=== PATIENT | female | born 1995 | race Caucasian/White ===

== ENCOUNTER 2018-04-27 20:51 | Emergency (ER) | payer OTHER ==
[~2018-04-27 20:51] MED LIST: ESCI20TA38 PO; HYDR25CA83 PO
[2018-04-27] MEDS ORDERED: AMIT-104 (21:37)
[2018-04-27] MEDS ORDERED: NORG1TAB94 PO (21:37)
[2018-04-27] MEDS ORDERED: FLUO40CA67 (21:37)
--- NOTE | 2018-04-27 21:53 | ER Report ---
History and Physical Time Seen By MD: 21:53 Hx. of Stated Complaint: PT REPORTS HEADACHE SINCE 0800 HPI/ROS CHIEF COMPLAINT: Headache HISTORY OF PRESENT ILLNESS: This is a 22-year-old female. She has a severe headache, similar to past migraines but more severe. Took [id number] medicines without relief. Having pain that started in the back of the head and wrapping up and around on the right side. Having some photophobia, no other neurologic deficits. Has never had imaging. This headache is worse than any she has had before. No fevers or chills. No recent illnesses. Allergies: Coded Allergies: No Known Drug Allergies (Unverified , 04/27/18) Home Meds Active Scripts Ketorolac Tromethamine (KETOROLAC TROMETHAMINE) 10 Mg Tab, 10 MG PO Q6H PRN for PAIN, #12 TAB 0 Refills Prov:DYLAN SILVEIRA MD 04/28/18 Promethazine Hcl (PROMETHAZINE HCL) 25 Mg Tablet, 25 MG PO Q8H PRN for HEADACHE, #20 TAB 0 Refills Prov:DYLAN SILVEIRA MD 04/28/18 Reported Medications Fluoxetine Hcl (FLUOXETINE HCL) 40 Mg Capsule, QDAY 04/27/18 Amitriptyline Hcl (AMITRIPTYLINE HCL) 10 Mg Tablet, PRN 04/27/18 Norgestimate-Ethinyl Estradiol (ORTHO TRI-CYCLEN) 1 Each Tablet, 1 EACH PO QDAY 04/27/18 Hydroxyzine Pamoate (VISTARIL) 25 Mg Capsule, 25 MG PO TID PRN for ANXIETY, KAMALJIT DONOHUE 12/03/15 Discontinued Reported Medications Escitalopram Oxalate (LEXAPRO) 20 Mg Tablet, 5 MG PO QDAY, TAB 12/03/15 Reviewed Nurses Notes: Yes Hx Smoking: No Hx Substance Use Disorder: No Hx Alcohol Use: No Constitutional Vital Sign - Last 24 Hours 04/27/18 04/27/18 04/27/18 04/27/18 21:00 21:15 21:37 21:45 Temp 97.9 Pulse 77 ??? 85 Resp 16 B/P (MAP) 127/104 127/104 (112) Pulse Ox 93 93 O2 Delivery Room Air 04/27/18 04/27/18 04/27/18 04/27/18 22:00 22:15 22:20 22:30 Pulse 82 77 86 B/P (MAP) 135/82 (99) 114/92 (99) Pulse Ox 91 95 94 04/27/18 04/27/18 04/27/18 04/27/18 22:50 23:00 23:20 23:30 Pulse 79 85 B/P (MAP) 120/80 (93) 116/75 (89) Pulse Ox 96 95 04/27/18 04/27/18 04/28/18 04/28/18 23:35 23:49 00:00 00:05 Pulse ??? 80 B/P (MAP) 131/77 (95) 120/78 (92) Pulse Ox 94 04/28/18 04/28/18 00:35 00:45 Pulse 81 B/P (MAP) 117/95 (102) Pulse Ox 93 Intake and Output 04/27/18 04/27/18 04/28/18 15:00 23:00 07:00 Intake Total 1000 ml Balance 1000 ml Physical Exam General Appearance: The patient is alert. Acute distress due to pain. Non- toxic in appearance. Eyes: Pupils are equal, round. Reactive to light. No pallor, injection or icterus. Extraocular movements are intact. ENT: Mucous membranes are moist. Normal oral mucosa. Posterior oropharynx is normal. Neck: Supple and non tender. Respiratory: Lungs are clear to auscultation. Cardiovascular: Regular rate and rhythm. No murmurs, gallops or rubs. Neurological: Alert and oriented x3. Cranial nerves II through XII show no acute deficits on my exam. No focal neurologic deficits in the extremities. Skin: Warm and dry. DIFFERENTIAL DIAGNOSIS: After history and physical exam, differential diagnosis was considered for migraine headache, but more severe than usual, will give medications, but also check for other causes of headaches such as masses or bleeding. Medical Decision Making Data Points Result Diagram: 04/27/18215604/27/182156 Laboratory Hematology Test 04/27/18 21:57 04/27/18 22:50 04/27/18 23:38 Red Blood Count 5.38 M/uL (4.17-5.56) Mean Corpuscular Volume 81.6 fL (80.0-96.0) Mean Corpuscular Hemoglobin 27.3 pg (26.0-33.0) Mean Corpuscular Hemoglobin Concent 33.5 g/dL (32.0-36.0) Red Cell Distribution Width 15.5 % (11.5-14.5) Mean Platelet Volume 8.1 fL (7.2-11.1) Neutrophils (%) (Auto) 83.6 % (39.4-72.5) Lymphocytes (%) (Auto) 12.0 % (17.6-49.6) Monocytes (%) (Auto) 3.6 % (4.1-12.4) Eosinophils (%) (Auto) 0.4 % (0.4-6.7) Basophils (%) (Auto) 0.4 % (0.3-1.4) Nucleated RBC Relative Count (auto) 0.0 /100WBC Neutrophils # (Auto) 12.5 K/uL (2.0-7.4) Lymphocytes # (Auto) 1.8 K/uL (1.3-3.6) Monocytes # (Auto) 0.5 K/uL (0.3-1.0) Eosinophils # (Auto) 0.1 K/uL (0.0-0.5) Basophils # (Auto) 0.1 K/uL (0.0-0.1) Nucleated RBC Absolute Count (auto) 0.01 K/uL Sodium Level 138 mmol/L (137-145) Potassium Level 4.0 mmol/L (3.5-5.0) Chloride Level 104 mmol/L (98-107) Carbon Dioxide Level 23 mmol/L (22-31) Blood Urea Nitrogen 9 mg/dl (7-18) Creatinine 0.70 mg/dl (0.52-1.04) Glomerular Filtration Rate Calc > 60.0 Random Glucose 147 mg/dl (75-110) Calcium Level 9.9 mg/dl (8.4-10.2) Total Bilirubin 0.3 mg/dl (0.2-1.3) Aspartate Amino Transf (AST/SGOT) 30 U/L (0-35) Alanine Aminotransferase (ALT/SGPT) 27 U/L (0-56) Alkaline Phosphatase 80 U/L (0-126) Total Protein 7.5 g/dl (6.3-8.2) Albumin 4.4 g/dl (3.5-5.0) Human Chorionic Gonadotropin, Qual Negative (NEGATIVE) Urine Color Straw Urine Clarity Clear Urine pH 6.0 pH (4.8-9.5) Urine Specific Korbel 1.004 Urine Protein Negative mg/dL (NEGATIVE) Urine Glucose (UA) Negative mg/dL (NEGATIVE) Urine Ketones Negative mg/dL (NEGATIVE) Urine Blood Small (NEGATIVE) Urine Nitrite Negative (NEGATIVE) Urine Bilirubin Negative (NEGATIVE) Urine Urobilinogen Negative mg/dL (0.2-1.9) Urine Leukocyte Esterase Trace (NEGATIVE) Urine RBC 1 /HPF (0-2/HPF) Urine WBC 3 /HPF (0-5/HPF) Urine Squamous Epithelial Cells Many /LPF (</=FEW) Urine Bacteria Few /HPF (NONE-FEW) Urine Mucus None /HPF (NONE-FEW) Chemistry Test 04/27/18 21:57 04/27/18 22:50 04/27/18 23:38 White Blood Count 14.9 k/uL (4.5-11.0) Red Blood Count 5.38 M/uL (4.17-5.56) Hemoglobin 14.7 g/dL (12.0-16.0) Hematocrit 43.9 % (34.0-47.0) Mean Corpuscular Volume 81.6 fL (80.0-96.0) Mean Corpuscular Hemoglobin 27.3 pg (26.0-33.0) Mean Corpuscular Hemoglobin Concent 33.5 g/dL (32.0-36.0) Red Cell Distribution Width 15.5 % (11.5-14.5) Platelet Count 312 K/uL (150-450) Mean Platelet Volume 8.1 fL (7.2-11.1) Neutrophils (%) (Auto) 83.6 % (39.4-72.5) Lymphocytes (%) (Auto) 12.0 % (17.6-49.6) Monocytes (%) (Auto) 3.6 % (4.1-12.4) Eosinophils (%) (Auto) 0.4 % (0.4-6.7) Basophils (%) (Auto) 0.4 % (0.3-1.4) Nucleated RBC Relative Count (auto) 0.0 /100WBC Neutrophils # (Auto) 12.5 K/uL (2.0-7.4) Lymphocytes # (Auto) 1.8 K/uL (1.3-3.6) Monocytes # (Auto) 0.5 K/uL (0.3-1.0) Eosinophils # (Auto) 0.1 K/uL (0.0-0.5) Basophils # (Auto) 0.1 K/uL (0.0-0.1) Nucleated RBC Absolute Count (auto) 0.01 K/uL Glomerular Filtration Rate Calc > 60.0 Calcium Level 9.9 mg/dl (8.4-10.2) Total Bilirubin 0.3 mg/dl (0.2-1.3) Aspartate Amino Transf (AST/SGOT) 30 U/L (0-35) Alanine Aminotransferase (ALT/SGPT) 27 U/L (0-56) Alkaline Phosphatase 80 U/L (0-126) Total Protein 7.5 g/dl (6.3-8.2) Albumin 4.4 g/dl (3.5-5.0) Human Chorionic Gonadotropin, Qual Negative (NEGATIVE) Urine Color Straw Urine Clarity Clear Urine pH 6.0 pH (4.8-9.5) Urine Specific Korbel 1.004 Urine Protein Negative mg/dL (NEGATIVE) Urine Glucose (UA) Negative mg/dL (NEGATIVE) Urine Ketones Negative mg/dL (NEGATIVE) Urine Blood Small (NEGATIVE) Urine Nitrite Negative (NEGATIVE) Urine Bilirubin Negative (NEGATIVE) Urine Urobilinogen Negative mg/dL (0.2-1.9) Urine Leukocyte Esterase Trace (NEGATIVE) Urine RBC 1 /HPF (0-2/HPF) Urine WBC 3 /HPF (0-5/HPF) Urine Squamous Epithelial Cells Many /LPF (</=FEW) Urine Bacteria Few /HPF (NONE-FEW) Urine Mucus None /HPF (NONE-FEW) Urinalysis Test 04/27/18 23:38 Urine Color Straw Urine Clarity Clear Urine pH 6.0 pH (4.8-9.5) Urine Specific Korbel 1.004 Urine Protein Negative mg/dL (NEGATIVE) Urine Glucose (UA) Negative mg/dL (NEGATIVE) Urine Ketones Negative mg/dL (NEGATIVE) Urine Blood Small (NEGATIVE) Urine Nitrite Negative (NEGATIVE) Urine Bilirubin Negative (NEGATIVE) Urine Urobilinogen Negative mg/dL (0.2-1.9) Urine Leukocyte Esterase Trace (NEGATIVE) Urine RBC 1 /HPF (0-2/HPF) Urine WBC 3 /HPF (0-5/HPF) Urine Squamous Epithelial Cells Many /LPF (</=FEW) Urine Bacteria Few /HPF (NONE-FEW) Urine Mucus None /HPF (NONE-FEW) EKG/Imaging Imaging CT Head without contrast Indication: Headache. Comparison: None available. Technique: Axial CT images were obtained through the brain from the skull base to the vertex without administration of IV contrast. One of the following dose optimization techniques was utilized in the performance of this exam: Automated exposure control; adjustment of the mA and/or kV according to the patient's size; or use of an iterative reconstruction technique. Specific details can be referenced in the facility's radiology CT exam operational policy. Findings: No evidence of mass, mass effect, or midline shift. No acute intracranial hemorrhage or acute territorial infarction. Skull is normal. Globes and orbits are normal. The visualized paranasal sinuses and mastoid air spaces are clear. IMPRESSION: Normal. Report Dictated By: Pawan Covarrubias MD at 04/27/2018 11:53 PM ED Course/Re-evaluation Clinical Indication for ER IV: Hydration, IV Access ED Course Patient with much improvement with medicines: 1000cc NS, Toradol 15mg, Phenergan 12.5mg IV, and Benadryl 25mg IV. CT scan negative. Discussed with patient. Home with oral medications: Toradol and Phenergan. Decision to Disposition Date: Apr 28, 2018 Decision to Disposition Time: 00:32 Depart Departure Latest Vital Signs Vital Signs Date Time Temp Pulse Resp B/P (MAP) Pulse Ox O2 Delivery O2 Flow Rate FiO2 04/28/18 00:45 117/95 (102) 04/28/18 00:35 81 93 04/27/18 21:00 97.9 16 Room Air Impression: Primary Impression: Migraine headache Condition: Improved Disposition: HOME OR SELF-CARE New Scripts Ketorolac Tromethamine (KETOROLAC TROMETHAMINE) 10 Mg Tab 10 MG PO Q6H PRN for PAIN, #12 TAB 0 Refills Prov: DYLAN SILVEIRA MD 04/28/18 Promethazine Hcl (PROMETHAZINE HCL) 25 Mg Tablet 25 MG PO Q8H PRN for HEADACHE, #20 TAB 0 Refills Prov: DYLAN SILVEIRA MD 04/28/18 Patient Instructions: Migraine Headache (ED) Additional Instructions: Rest and increase fluid intake. Take Phenergan 25mg tablets, one every 8 hours as needed for vomiting or headache. Take Toradol 10mg, one every 6 hours as needed for headache. Problem Qualifiers Primary Impression: Migraine headache Migraine type: with aura Status migrainosus presence: without status migrainosus Intractability: not intractable Qualified Codes: G43.109 - Migraine with aura, not intractable, without status migrainosus DYLAN SILVEIRA MD Apr 27, 2018 21:53
[2018-04-27] MEDS ORDERED: NS(*) 0.9% 1000 ML BAG 1,000 ML IV ONE (22:00)
[2018-04-27] MEDS ORDERED: KETOROLAC 15 MG/ML VIAL IVP ONE (22:00)
[2018-04-27] MEDS ORDERED: PROMETHAZINE 25 MG/ML 1 ML AMP IVP ONE (22:00)
[2018-04-27] MEDS ORDERED: diphenhydrAMINE 50 MG/ML VIAL IVP ONE (22:00)
[2018-04-27 22:38] LABS: PLATELET COUNT, AUTOMATED 312 K/uL (150-450)
--- NOTE | 2018-04-28 00:02 | RADIOLOGY IMAGING REPORT ---
[place] [facility] [place] Lucinda Garcia : 1995 MR: [id number] V: [id number] EXAM DATE: ORDERING PHYSICIAN: DYLAN SILVEIRA TECHNOLOGIST: Location: [facility] Patient: Lucinda Garcia : 1995 Visit/Account:[id number] Date of Sevice: 04/27/2018 CT Head without contrast Indication: Headache. Comparison: None available. Technique: Axial CT images were obtained through the brain from the skull base to the vertex without administration of IV contrast. One of the following dose optimization techniques was utilized in th e performance of this exam: Automated exposure control; adjustment of the mA and/or kV according to t he patient's size; or use of an iterative reconstruction technique. Specific details can be referen grant in the facility's radiology CT exam operational policy. Findings: No evidence of mass, mass effect, or midline shift. No acute intracranial hemorrhage or acute territorial infarction. Skull is normal. Globes and orbits are normal. The visualized paranasal sinuses and mastoid air spaces are clear. IMPRESSION: Normal. Report Dictated By: Pawan Covarrubias MD at 04/27/2018 11:53 PM Report E-Signed By: Pawan Covarrubias MD at 04/27/2018 11:57 PM WSN:[id number]
[2018-04-28] MEDS ORDERED: PROM-110 PO (00:33)
[2018-04-28] MEDS ORDERED: KET10 PO (00:33)
[2018-04-28 00:45] VITALS: BP 117/95
== END 2018-04-28 00:47 | disposition home or self-care (01) ==
LOC: ER 21:54
DX: G43.109 Migraine with aura, not intractable, without status migrainosus (principal)
CPT/HCPCS: 70450; 81001; 84703; 85025; 96361; 96374; 96375; 99284; J1200; J1885; J2550; J7030; 82040; 82247; 82310; 82374; 82435; 82565; 82947; 84075; 84132; 84155; 84295; 84450; 84460; 84520